=== PATIENT | male | born 1965 | race Two or more races ===

== ENCOUNTER 2021-03-05 09:52 | Inpatient (IN) | payer OTHER ==
[~2021-03-05] VITALS: Ht 167.6 cm; Wt 72.7 kg
[2021-03-05] MEDS ORDERED: ACETAMINOPHEN 325MG TABLET PO ONE (10:30)
[2021-03-05] MEDS ORDERED: IBUPROFEN 400MG TABLET PO ONE (10:30)
[2021-03-05 10:40] LABS: BASOPHILS % 0.4 % (0.0-2.0); EOSINOPHILS % 3.7 % (0.0-5.0); HEMATOCRIT. 48.4 % (42.0-52.0); HEMOGLOBIN. 17.3 g/dL (14.0-18.0); LYMPHOCYTES % 10.1 % (20.0-50.0); MEAN CORPUSCULAR HEMOGLOBIN 29.4 pg (28.0-32.0); MEAN PLATELET VOLUME 6.5 fl (7.4-10.4); MONOCYTES % 7.1 % (2.0-8.0); NEUTROPHILS % 78.7 % (40.0-76.0); PLATELET 281 x1000/uL (130-400); RED CELL DISTRIBUTION WIDTH 13.3 % (11.6-14.6)
[2021-03-05 10:47] LABS: CHLORIDE 90 mEq/L (98-107)
[2021-03-05 11:49] LABS: CLARITY URINE CLEAR (CLEAR); COLOR URINE YELLOW (YELLOW); KETONES URINE 2+ (NEGATIVE); LEUKOCYTE ESTERASE URINE NEGATIVE (NEGATIVE); NITRITE URINE NEGATIVE (NEGATIVE); OCCULT BLOOD URINE 2+ (NEGATIVE); PROTEIN URINE 4+ (NEGATIVE); SPECIFIC GRAVITY URINE 1.023 (1.005-1.030)
[2021-03-05] MEDS ORDERED: MAGNESIUM/ALUMINUM HYDROXIDE/SIMETHICONE 30ML UDC PO PRN (16:45)
[2021-03-05] MEDS ORDERED: NA PHOS,M-B/NA PHOS,DI-BA ENEMA 118ML PR PRN (16:45)
[2021-03-05] MEDS ORDERED: CLONIDINE 0.1MG TABLET PO PRN (16:45)
[2021-03-05] MEDS ORDERED: ACETAMINOPHEN 650MG SUPP PR PRN ×2 (16:45)
[2021-03-05] MEDS ORDERED: ACETAMINOPHEN 325MG TABLET PO PRN ×2 (16:45)
[2021-03-05] MEDS ORDERED: DOCUSATE SODIUM 100MG CAPSULE PO PRN (16:45)
[2021-03-05] MEDS ORDERED: DIPHENHYDRAMINE 50MG/ML VIAL IV PRN (16:45)
[2021-03-05] MEDS ORDERED: ACETAMINOPHEN 650MG/20.3ML UDC GT PRN ×2 (16:45)
[2021-03-05] MEDS ORDERED: ENOXAPARIN 40MG/0.4ML SYR SUBCUT SCH (17:00)
[2021-03-05] MEDS ORDERED: ONDANSETRON HCL 4MG/2ML INJ IV ONE (18:30)
[2021-03-05] MEDS ORDERED: SODIUM CHLORIDE 0.9% 1,000 ML IV ONE (18:45)
[2021-03-05] MEDS: PANTOPRAZOLE SODIUM 40 MG/VIAL IV SCH (18:50)
[2021-03-05 20:33] LABS: HEMATOCRIT 44.5 % (42.0-52.0); HEMOGLOBIN 15.6 g/dL (14.0-18.0)
[2021-03-05] MEDS ORDERED: ONDANSETRON HCL 4MG/2ML INJ IV PRN (21:00)
[2021-03-05 22:00] LABS: CHLORIDE 94 mEq/L (98-107)
[2021-03-05 22:05] LABS: PARTIAL THROMBOPLASTIN TIME 39.2 sec (23.4-31.0); PROTHROMBIN TIME 11.2 sec (9.6-11.0)
[2021-03-05 22:18] VITALS: BP 106/56
[2021-03-06] VITALS: BP 139/84
[2021-03-06] MEDS: GUAIFENESIN 200MG/10ML SUGAR FREE UDC PO PRN ×2 (00:48→08:31)
[2021-03-06] MEDS ORDERED: SIMV10TA97 PO (01:04)
[2021-03-06] MEDS ORDERED: AMLO1CAP2 MT (01:04)
[2021-03-06] MEDS ORDERED: ALLO100T PO (01:04)
[2021-03-06] MEDS ORDERED: METO-539 PO (01:04)
[2021-03-06 04:00] VITALS: BP 127/82
[2021-03-06 07:31] LABS: CHLORIDE 95 mEq/L (98-107); HEMATOCRIT. 46.2 % (42.0-52.0); HEMOGLOBIN. 15.8 g/dL (14.0-18.0); MEAN CORPUSCULAR HEMOGLOBIN 28.8 pg (28.0-32.0); MEAN CORPUSCULAR VOLUME 84.3 fL (80.0-94.0); MEAN PLATELET VOLUME 6.9 fl (7.4-10.4); PLATELET 257 x1000/uL (130-400); RED BLOOD CELL COUNT 5.49 mill/uL (4.7-6.1); RED CELL DISTRIBUTION WIDTH 13.7 % (11.6-14.6)
[2021-03-06 07:42] LABS: LDL CHOLESTEROL 103 mg/dL (5-100)
[2021-03-06 07:43] LABS: HDL CHOLESTEROL 63 mg/dL (40-59)
[2021-03-06 07:50] VITALS: BP 107/71
[2021-03-06] MEDS: PANTOPRAZOLE SODIUM 40 MG/VIAL IV SCH (08:31)
[2021-03-06 12:00] VITALS: BP 114/77
[2021-03-06] MEDS ORDERED: POTASSIUM PHOS,M-BASIC-D-BASIC 20 MMOL in DEXT 5% WATER 243.3333 ML IV SCH (15:00)
[2021-03-06 16:00] VITALS: BP 105/72
[2021-03-06 19:47] LABS: CHLORIDE 94 mEq/L (98-107)
[2021-03-06 20:00] VITALS: BP 105/71
[2021-03-06] MEDS: FAMOTIDINE 20MG/2ML VIAL IV SCH (20:24)
[2021-03-07] VITALS: BP 128/86
[2021-03-07 01:36] LABS: PLATELET ESTIMATE NORMAL
[2021-03-07 04:00] VITALS: BP 120/72
[2021-03-07 07:13] LABS: BASOPHILS % 0.8 % (0.0-2.0); EOSINOPHILS % 10.4 % (0.0-5.0); HEMATOCRIT. 46.2 % (42.0-52.0); HEMOGLOBIN. 15.9 g/dL (14.0-18.0); LYMPHOCYTES % 18.8 % (20.0-50.0); MEAN CORPUSCULAR HEMOGLOBIN 29.2 pg (28.0-32.0); MEAN CORPUSCULAR VOLUME 84.6 fL (80.0-94.0); MEAN PLATELET VOLUME 6.9 fl (7.4-10.4); MONOCYTES % 14.8 % (2.0-8.0); NEUTROPHILS % 55.2 % (40.0-76.0); PLATELET 243 x1000/uL (130-400); RED BLOOD CELL COUNT 5.46 mill/uL (4.7-6.1); RED CELL DISTRIBUTION WIDTH 13.2 % (11.6-14.6)
[2021-03-07 07:16] LABS: CHLORIDE 96 mEq/L (98-107)
[2021-03-07 08:00] VITALS: BP 124/69
[2021-03-07 09:09] LABS: MICROALBUMIN RANDOM URINE 9328.4 ug/mL (Not Estab.)
[2021-03-07] MEDS: FAMOTIDINE 20MG/2ML VIAL IV SCH ×2 (09:09→20:06)
[2021-03-07 11:51] VITALS: BP 118/75
[2021-03-07 16:00] VITALS: BP 152/90
[2021-03-07 19:20] LABS: HEPATITIS B SURFACE ANTIGEN NEGATIVE
[2021-03-07 20:00] VITALS: BP 126/88
[2021-03-07] MEDS: GUAIFENESIN 200MG/10ML SUGAR FREE UDC PO PRN (20:16)
[2021-03-08] VITALS: BP 101/72
[2021-03-08 04:00] VITALS: BP 101/80
[2021-03-08 06:22] LABS: BASOPHILS % 0.5 % (0.0-2.0); EOSINOPHILS % 7.6 % (0.0-5.0); HEMOGLOBIN. 15.8 g/dL (14.0-18.0); LYMPHOCYTES % 16.1 % (20.0-50.0); MEAN CORPUSCULAR HEMOGLOBIN 29.1 pg (28.0-32.0); MEAN CORPUSCULAR VOLUME 84.7 fL (80.0-94.0); MONOCYTES % 12.8 % (2.0-8.0); PLATELET 253 x1000/uL (130-400); RED BLOOD CELL COUNT 5.44 mill/uL (4.7-6.1); RED CELL DISTRIBUTION WIDTH 13.2 % (11.6-14.6)
[2021-03-08 06:26] LABS: CHLORIDE 95 mEq/L (98-107)
[2021-03-08 06:39] LABS: PHOSPHORUS 3.6 mg/dL (2.5-4.9)
[2021-03-08 08:00] VITALS: BP 145/93
[2021-03-08] MEDS: FAMOTIDINE 20MG TABLET PO SCH ×2 (08:30→20:44)
[2021-03-08] MEDS: AMLODIPINE 5MG TABLET PO SCH (10:35)
[2021-03-08] MEDS: GUAIFENESIN 200MG/10ML SUGAR FREE UDC PO PRN (11:25)
[2021-03-08 11:54] VITALS: BP 135/84
[2021-03-08 16:00] VITALS: BP 121/79
[2021-03-08 20:00] VITALS: BP 122/62
[2021-03-09] VITALS: BP 115/70
[2021-03-09 04:00] VITALS: BP 146/86
[2021-03-09 06:21] LABS: BASOPHILS % 0.6 % (0.0-2.0); EOSINOPHILS % 5.6 % (0.0-5.0); HEMATOCRIT. 44.4 % (42.0-52.0); HEMOGLOBIN. 15.5 g/dL (14.0-18.0); LYMPHOCYTES % 16.4 % (20.0-50.0); MEAN CORPUSCULAR HEMOGLOBIN 29.2 pg (28.0-32.0); MEAN CORPUSCULAR VOLUME 83.7 fL (80.0-94.0); MEAN PLATELET VOLUME 6.6 fl (7.4-10.4); MONOCYTES % 9.6 % (2.0-8.0); NEUTROPHILS % 67.8 % (40.0-76.0); PLATELET 265 x1000/uL (130-400); RED CELL DISTRIBUTION WIDTH 13.3 % (11.6-14.6)
[2021-03-09 06:52] LABS: CHLORIDE 97 mEq/L (98-107)
[2021-03-09] MEDS: FAMOTIDINE 20MG TABLET PO SCH (08:06)
[2021-03-09] MEDS: AMLODIPINE 5MG TABLET PO SCH (08:06)
[2021-03-09 08:21] VITALS: BP 152/100
[2021-03-09 09:06] LABS: ANTI-DNA DOUBLE STRANDED QUANT 1 IU/mL (0-9); ANTI-NUCLEAR ANTIBODIES DIRECT Negative (Negative); IMMUNOGLOBULIN A 326 mg/dL (90-386); IMMUNOGLOBULIN G 1260 mg/dL (603-1613); IMMUNOGLOBULIN M 98 mg/dL (20-172)
[2021-03-09 10:07] LABS: A/G RATIO 0.9 (0.7-1.7); ALBUMIN 3.5 g/dL (2.9-4.4); ALPHA-1-GLOBULIN 0.3 g/dL (0.0-0.4); ALPHA-2-GLOBULIN 1.1 g/dL (0.4-1.0); BETA GLOBULIN 1.3 g/dL (0.7-1.3); GAMMA GLOBULINS 1.4 g/dL (0.4-1.8); GLOBULIN TOTAL 4.1 g/dL (2.2-3.9); M-SPIKE Not Observed g/dL (Not Observed); TOTAL PROTEIN SERUM 7.6 g/dL (6.0-8.5)
[2021-03-09 12:00] VITALS: BP 136/87
[2021-03-09 15:56] VITALS: BP 139/83
[2021-03-09 17:18] VITALS: BP 139/83
[2021-03-10] MEDS ORDERED: METOPROLOL TARTRATE 50MG TABLET PO SCH (09:00)
[2021-03-10] MEDS ORDERED: AMLODIPINE 10MG TABLET PO SCH (09:00)
== END 2021-03-09 17:55 | disposition home or self-care (01) | DRG 644 ==
LOC: ER 09:52 → MICUSO 12:07 → 7EST 20:20
PROVIDERS: ADMIT Family Medicine; ATTEND Family Medicine
DX: E22.2 Syndrome of inappropriate secretion of antidiuretic hormone (principal); K92.0 Hematemesis; J06.9 Acute upper respiratory infection, unspecified; E78.5 Hyperlipidemia, unspecified; R80.9 Proteinuria, unspecified; I10 Essential (primary) hypertension; Z20.822 Contact with and (suspected) exposure to COVID-19; Z79.899 Other long term (current) drug therapy; Z86.73 Personal history of transient ischemic attack (TIA), and cerebral infarction without residual deficits
CPT/HCPCS: 36415; 71045; 80048; 80053; 80061; 80076; 81003; 82043; 82330; 82533; 82570; 82575; 82784; 83735; 83930; 83935; 84100; 84155; 84156; 84165; 84300; 84443; 84550; 85014; 85018; 85025; 86038; 86160; 86225; 86334; 86592; 86780; 86803; 87340; 87426; 93005; 99285; C9113; C9803; J1650; J2405; J3490; J7040; J7060; U0003; U0005